=== PATIENT | female | born 1955 | race Caucasian/White ===

== ENCOUNTER → 2023-12-04 17:26 | Outpatient (CLI) | payer MEDICARE, SELFPAY ==
--- NOTE | 2023-12-04 17:32 | DI.RAD.S_ITS ---
PROCEDURE: XR FINGER RT MIN 2V INDICATIONS: finger injury TECHNIQUE: AP hand, 2 views of the 2nd finger(s) acquired. COMPARISON: None. FINDINGS: Bones: No acute fracture identified. A small ossicles adjacent to the 2nd digit DIP joint. No dislocations. No osseous erosion identified. No suspicious bony lesions. 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 Marked degenerative changes within the interphalangeal joints of the 1st-3rd digits. Soft tissues: No suspicious soft tissue calcifications. Laceration at the 2nd digit at the level of the proximal phalanx distal aspect. No radiopaque foreign body. 2nd digit swelling. Trace 3rd digit swelling. Soft tissue gas seen at the 2nd-3rd webspace. IMPRESSION: 1. Suspect soft tissue gas at the 2/3 web space. This could be due to a gas-forming infection. 2nd and 3rd digit swelling. 2. Laceration at the 2nd digit. No radiopaque foreign body seen. 3. No underlying fracture. No osseous erosion identified. 4. 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 Dictated by: Freddie Broussard M.D. on 12/05/2023 at 14:46 Approved by: Freddie Broussard M.D. on 12/05/2023 at 14:51
== END ==
LOC: RAD 17:30
PROVIDERS: Referring Provider Nurse Practitioner Family; Visit Provider Nurse Practitioner Family
DX: S61.210A Laceration without foreign body of right index finger without damage to nail, initial encounter (principal); M79.644 Pain in right finger(s)
CPT/HCPCS: 73140